=== PATIENT | female | born 1980 | race Caucasian/White ===

== ENCOUNTER → 2017-01-26 | Day surgery (SDC) | payer OTHER | END | disposition home or self-care (01) | LOC: SDC 13:39 | DX: N30.10 Interstitial cystitis (chronic) without hematuria (principal); F17.210 Nicotine dependence, cigarettes, uncomplicated; Z85.42 Personal history of malignant neoplasm of other parts of uterus; Z88.1 Allergy status to other antibiotic agents; Z88.5 Allergy status to narcotic agent; Z88.8 Allergy status to other drugs, medicaments and biological substances; Z79.899 Other long term (current) drug therapy; Z90.710 Acquired absence of both cervix and uterus | CPT/HCPCS: C1758; J1885; J2704; J2765; Q9967 ==

== ENCOUNTER → 2017-08-07 | Day surgery (SDC) | payer OTHER | END | disposition home or self-care (01) | LOC: SDC 06:53 | DX: N30.10 Interstitial cystitis (chronic) without hematuria (principal); N34.3 Urethral syndrome, unspecified; R30.0 Dysuria; Z85.42 Personal history of malignant neoplasm of other parts of uterus; Z88.1 Allergy status to other antibiotic agents; Z88.5 Allergy status to narcotic agent; Z88.8 Allergy status to other drugs, medicaments and biological substances | CPT/HCPCS: C1758; J1885; J2704; Q9967 ==